=== PATIENT | male | born 1965 | race Caucasian/White ===

== ENCOUNTER 2016-11-17 07:46 | Day surgery (SDC) | payer BC ==
[2016-11-17] MEDS ORDERED: Lactated Ringer's 1,000 ML IV ONE (09:35)
--- NOTE | 2016-11-17 09:35 | CP.SDSHP ---
Same Day Surgery H & P - History Proposed Procedure: colonoscopy Pre-Op Diagnosis: family history of colon cancer - Previous Medical/Surgical History Endocrine/Metabolic: Diabetes - Allergies Allergies: Allergies shrimp Allergy (Severe, Uncoded 11/17/16 08:13) ANAPHYLAXIS SHRIMP/IODINE CATS Allergy (Uncoded 11/17/16 08:13) RASH NO REACTION - PT HAS A CAT BUT TOLD HE IS ALLERGIC. - Physical Exam General Appearance: NAD Vital Signs: Vital Signs 11/17/16 08:13 Temperature 97.3 F L Pulse Rate 67 Respiratory 19 Rate Blood Pressure 134/78 O2 Sat by Pulse 97 Oximetry Mental Status: Alert & Oriented x3 Neuro: WNL Heart: WNL Lungs: WNL GI: WNL - {Optional Preform as Required} Abdomen: WNL - Impression Pt. Evaluated Today:Candidate for Anesthesia & Procedure: Yes - Date & Time Date: 11/17/16 Time: 09:35 Short Stay Discharge - Short Stay Discharge Admitting Diagnosis/Reason for Visit: FAMILY H/O COLON CANCER Disposition: HOME/ ROUTINE
[2016-11-17] MEDS ORDERED: Propofol 10 mg/ml Inj (20 ML) ONE ×2 (09:41→10:01)
[2016-11-17 10:27] VITALS: TEMP 97.8; O2SAT 96
[2016-11-17 10:38] VITALS: RESP 12
[2016-11-17 10:57] VITALS: BP 110/84; PULSE 64
== END 2016-11-17 11:10 | disposition home or self-care (01) ==
LOC: C.ENDO 07:46
PROVIDERS: ATTEND Internal Medicine Gastroenterology
DX: D12.2 Benign neoplasm of ascending colon (principal); D12.5 Benign neoplasm of sigmoid colon; K62.1 Rectal polyp
CPT/HCPCS: 45388; 82948; 88305; J2704; J3010; J7120